=== PATIENT | female | born 2000 | race Two or more races ===

== ENCOUNTER 2019-08-13 12:30 | Emergency (ER) | payer OTHER ==
[2019-08-13 13:02] LABS: Rapid Strep Molecular POSITIVE (Negative)
[2019-08-13] MEDS ORDERED: Dexamethasone TAB* 4 MG PO ONE (13:28)
[2019-08-13] MEDS ORDERED: Ondansetron ODT TAB* 4 MG PO ONE (13:28)
[2019-08-13] MEDS ORDERED: Amoxicillin PO (*) 875 MG TAB PO ONE (13:52)
--- NOTE | 2019-08-13 13:56 | ED ---
Complex/Multi-Sys Presentation - HPI Summary HPI Summary: The pt is a 19 yr old female presenting to [facility] c/o sore throat and vomiting beginning 1 day [employer]. She notes that her throat became swollen and painful suddenly during the night. In the waiting room she was also having stomach spasms that resolved before being placed into the room. She also notes that the right side of her gums is swollen. She rates her current pain severity an 8/ 10. No aggravating or alleviating factors noted. She also reports chills, abd pain, shakiness, weakness, dizziness, and difficulty breathing. - History Of Current Complaint Chief Complaint: EDThroatPain Time Seen by Provider: 08/13/19 13:22 Hx Obtained From: Patient Onset/Duration: Sudden Onset, Lasting Hours, Still Present Timing: Hours Severity Currently: Severe Severity Initially: Severe Aggravating Factor(s): nothing Alleviating Factor(s): nothing Associated Signs And Symptoms: Positive: Dizziness, Weakness, SOB, Vomiting, Abdominal Pain, Other - pos - sore throat, chills, shakiness, swollen gums, stomach spasms - Allergies/Home Medications Allergies/Adverse Reactions: Allergies Allergy/AdvReac Type Severity Reaction Status Date / Time No Known Allergies Allergy Verified 08/13/19 12:36 PMH/Surg Hx/FS Hx/Imm Hx Sensory History: Denies: Hx Legally Blind, Hx Deafness Opthamlomology History: Denies: Hx Legally Blind EENT History: Denies: Hx Deafness - Surgical History Surgical History: None Surgery Procedure, Year, and Place: none Infectious Disease History: No Infectious Disease History: Denies: Traveled Outside the [place] in Last 30 Days - Family History Known Family History: Negative: Renal Disease - Social History Alcohol Use: None Substance Use Type: Reports: None Smoking Status (MU): Never Smoked Tobacco Review of Systems Constitutional: Other - pos - swollen gums Positive: Sore Throat Positive: Shortness Of Breath Positive: Abdominal Pain, Vomiting Neurological: Other - pos - dizziness, shakiness Positive: Weakness All Other Systems Reviewed And Are Negative: Yes Physical Exam - Summary Physical Exam Summary: Constitutional: Well-developed, Well-nourished, Alert. (-) Distressed Skin: Warm, Dry HENT: Normocephalic; Atraumatic, bilateral tonsils erythematous, uvula midline, lymph adenopathy Eyes: Conjunctiva normal Neck: Musculoskeletal ROM normal neck. (-) JVD, (-) Stridor, (-) Tracheal deviation, normal range during tracheal manipulation, pt is able to move her neck Cardio: Rhythm regular, rate normal, Heart sounds normal; Intact distal pulses; Radial pulses are 2+ and symmetric. (-) Murmur Pulmonary/Chest wall: Effort normal. (-) Respiratory distress, (-) Wheezes, (-) Rales Abd: Soft, (-) tenderness, (-) Distension, (-) Guarding, (-) Rebound Musculoskeletal: (-) Edema Lymph: (-) Cervical adenopathy Neuro: Alert, Oriented x3 Psych: Mood and affect Normal Triage Information Reviewed: Yes Vital Signs On Initial Exam: Initial Vitals Temp Pulse Resp BP Pulse Ox 99.1 F 122 16 125/83 99 08/13/19 12:33 08/13/19 12:33 08/13/19 12:33 08/13/19 12:33 08/13/19 12:33 Vital Signs Reviewed: Yes Procedures - Sedation Patient Received Moderate/Deep Sedation with Procedure: No Diagnostics - Vital Signs Vital Signs Temp Pulse Resp BP Pulse Ox 08/13/19 12:33 99.1 F 122 16 125/83 99 - Laboratory Lab Results: Lab Results 08/13/19 Range/Units 12:38 Group A Strep Rapid Positive A (Negative) Lab Statement: Any lab studies that have been ordered have been reviewed, and results considered in the medical decision making process. Re-Evaluation - Re-Evaluation First Eval Re-Evaluation Time: 14:09 Change: Improved Comment: Pt is feeling slightly better, will continue to monitor her. Complex Multi-Symp Course/Dx Course Of Treatment: Patient is here with strep pharyngitis. Patient does have swollen and enlarged tonsils but her uvula is midline. I do not think patient has a peritonsillar abscess. Patient has no pain with tracheal manipulation and has full range of motion in neck. Patient was given steroids, a dose of antibiotics, nausea medicine with improvement in her symptoms. Patient spiked a fever while here and was given Motrin for that. Patient was discharged with Zofran, Decadron, antibiotics. - Diagnoses Provider Diagnoses: Strep pharyngitis, Sore throat Discharge ED - Sign-Out/Discharge Documenting (check all that apply): Patient Departure - discharge - Discharge Plan Condition: Stable Disposition: HOME Prescriptions: Amoxicillin PO (*) [Amoxicillin 875 MG (*)] 875 mg PO BID 10 Days #20 tab Dexamethasone TAB* [Decadron TAB*] 12 mg PO ONCE #3 tab Ondansetron TAB* [Zofran 4 MG Tab*] 4 mg PO Q8H PRN #12 tab PRN Reason: vomiting Patient Education Materials: Strep Throat (ED) Forms: *School Release Referrals: [facility] - Pieter VALENTIN [Primary Care Provider] - 3 Days Additional Instructions: Take steroids tomorrow. Start antibiotic course. Take ibuprofen 600 mg every 6 hours or as needed. Use nausea medications and stay hydrated. Please return to the ED if you are drooling, have trouble breathing, cant move your neck, or other concerning symptoms. PLEASE RETURN TO EMERGENCY DEPARTMENT FOR ANY NEW OR WORSENING SYMPTOMS. Please follow up with your primary care physician. Please make all follow-ups in 1-3 days unless I advise you otherwise. - Billing Disposition and Condition Condition: STABLE Disposition: Home - Attestation Statements Document Initiated by Brittaney: Yes Documenting Scribe: Donis Gaines Provider For Whom Brittaney is Documenting (Include Credential): Saw Walls MD Scribe Attestation: I, Donis Gaines, scribed for Saw Walls MD on 08/13/19 at 1540. Scribe Documentation Reviewed: Yes Provider Attestation: The documentation as recorded by the Donis gloria accurately reflects the service I personally performed and the decisions made by me, Saw Walls MD Status of Scribe Document: Viewed
[2019-08-13] MEDS ORDERED: Amoxicillin PO (*) 875 MG TAB PO SCH (14:00)
[2019-08-13] MEDS ORDERED: Ibuprofen TAB* 600 MG PO ONE (14:30)
[2019-08-13 14:57] VITALS: BP 102/70
== END 2019-08-13 14:52 | disposition home or self-care (01) ==
LOC: ED 12:30
DX: J02.0 Streptococcal pharyngitis (principal)
CPT/HCPCS: 87651; 99282; A9270-GY; J8540